=== PATIENT | male | born 1940 | race Caucasian/White ===

== ENCOUNTER 2023-02-07 20:16 | Emergency (ER) | payer MEDICARE ==
[~2023-02-07] VITALS: Ht 177.8 cm; Wt 74.8 kg
[2023-02-07] MEDS ORDERED: fentaNYL INJ 100 MCG/2 ML AMP IVP STA (20:24)
[2023-02-07 20:30] LABS: BASOPHILS % (AUTO) 0 % (0-10); EOSINOPHILS % (AUTO) 0 % (0-10); HEMATOCRIT 42 % (40-54); HEMOGLOBIN 13.7 g/dL (13.3-17.7); LYMPHOCYTES # (AUTO) 2.2 10^3/uL (1.0-4.0); LYMPHOCYTES % (AUTO) 22 % (12-44); MEAN CORPUSCULAR HEMOGLOBIN 29 pg (25-34); MEAN CORPUSCULAR HGB CONC 32 g/dL (32-36); MEAN CORPUSCULAR VOLUME 89 fL (80-99); MEAN PLATELET VOLUME 10.6 fL (9.0-12.2); MONOCYTES # (AUTO) 2.9 10^3/uL (0.0-1.0); MONOCYTES % (AUTO) 29 % (0-12); NEUTROPHILS # (AUTO) 4.8 10^3/uL (1.8-7.8); NEUTROPHILS % (AUTO) 47 % (42-75); PLATELET COUNT 168 10^3/uL (130-400); WHITE BLOOD COUNT 10.1 10^3/uL (4.3-11.0)
--- NOTE | 2023-02-07 20:33 | ED Fall/Injury ---
General Chief Complaint: Trauma-Non Activation Stated Complaint: RIGHT HIP PAIN Source: patient, EMS History of Present Illness Date Seen by Provider: Feb 07, 2023 Time Seen by Provider: 20:16 Initial Comments 82-year-old male presenting by EMS from home. He was trying to separate dogs from fighting and fell from standing height. He was on his hands and knees and then tried to get up and got knocked down again by the dogs. He complains of pain to the right groin and feels that his hip is dislocated. He does not want to straighten his leg out. He has intact neurovascular and tendons. He denies hitting his head or losing consciousness. He denies any other injuries or areas of pain. If he lays still on his left side the right hip pain is 3 out of 10. With movement of the leg he states that shoots up to a 12 or 15. He has several superficial skin tears to his right arm from the fall. Occurred: this evening Injuries/Pain Location: pelvis, lower extremity (Right hip) Context: lost balance (Knocked over by a dog) Loss of Consciousness: no loss of consciousness Modifying Factors: Worse With Movement Associated Symptoms (Fall): No Abdominal Pain, No Chest Pain, No Confusion, No Dizziness, No Headache, No Lightheadedness, No Muscle Spasms, No Nausea/Vomiting, No Neck Pain, No Ringing in Ears, No Seizures, No Shortness of Air, No Slurred Speech, No Vision Changes Allergies and Home Medications Allergies Coded Allergies: No Known Drug Allergies (Unverified , 02/07/23) Patient Home Medication List Home Medication List Reviewed: Yes Review of Systems Review of Systems Constitutional: No chills, No fever Eyes: No Symptoms Reported Ears, Nose, Mouth, Throat: no symptoms reported Respiratory: no symptoms reported Cardiovascular: no symptoms reported Gastrointestinal: no symptoms reported Genitourinary: no symptoms reported Musculoskeletal: see HPI Skin: see HPI Psychiatric/Neurological: Denies Headache Past [id number] Hx Past Medical History Surgery/Hospitalization HX: Hypertension Physical Exam Vital Signs Vital Signs - First Documented 02/07/23 20:56 O2 Flow Rate 2.00 Capillary Refill : Height, Weight, BMI Height: '" Weight: lbs. oz. kg; BMI Method: General Appearance: WD/WN, severe distress (when right leg is moved he cries out in pain, otherwise he is in no distress) HEENT: PERRL/EOMI, pharynx normal Neck: non-tender, full range of motion, supple, normal inspection Cardiovascular: normal peripheral pulses, regular rate, rhythm Respiratory: chest non-tender, lungs clear, normal breath sounds, no respiratory distress, no accessory muscle use Gastrointestinal: normal bowel sounds, non tender, soft, no pulsatile mass Back: no CVA tenderness, no vertebral tenderness Extremities: no pedal edema, no calf tenderness, normal capillary refill, pelvis stable, other (pain to right groin and worse with movement of the right leg/hip) Neurologic/Psychiatric: alert, oriented x 3 Skin: normal color, warm/dry, other (multiple superficial skin tears to right arm) Franklin Coma Score Best Eye Response: (4) Open Spontaneously Best Verbal Response: (5) Oriented Best Motor Response: (6) Obeys Commands Franklin Total: 15 Progress/Results/Core Measures Results/Orders Lab Results Laboratory Tests Test 02/07/23 20:25 02/07/23 21:23 Range/Units White Blood Count 10.1 4.3-11.0 10^3/uL Red Blood Count 4.75 4.30-5.52 10^6/uL Hemoglobin 13.7 13.3-17.7 g/dL Hematocrit 42 40-54 % Mean Corpuscular Volume 89 80-99 fL Mean Corpuscular Hemoglobin 29 25-34 pg Mean Corpuscular Hemoglobin Concent 32 32-36 g/dL Red Cell Distribution Width 13.8 10.0-14.5 % Platelet Count 168 130-400 10^3/uL Mean Platelet Volume 10.6 9.0-12.2 fL Immature Granulocyte % (Auto) 2 % Neutrophils (%) (Auto) 47 42-75 % Lymphocytes (%) (Auto) 22 12-44 % Monocytes (%) (Auto) 29 H 0-12 % Eosinophils (%) (Auto) 0 0-10 % Basophils (%) (Auto) 0 0-10 % Neutrophils # (Auto) 4.8 1.8-7.8 10^3/uL Lymphocytes # (Auto) 2.2 1.0-4.0 10^3/uL Monocytes # (Auto) 2.9 H 0.0-1.0 10^3/uL Eosinophils # (Auto) 0.0 0.0-0.3 10^3/uL Basophils # (Auto) 0.0 0.0-0.1 10^3/uL Immature Granulocyte # (Auto) 0.2 H 0.0-0.1 10^3/uL Neutrophils % (Manual) 46 % Lymphocytes % (Manual) 19 % Monocytes % (Manual) 34 % Eosinophils % (Manual) 1 % Prothrombin Time 13.8 12.2-14.7 SEC INR Comment 1.0 0.8-1.4 Activated Partial Thromboplast Time 22 L 24-35 SEC Sodium Level 140 135-145 MMOL/L Potassium Level 3.8 3.6-5.0 MMOL/L Chloride Level 104 98-107 MMOL/L Carbon Dioxide Level 22 21-32 MMOL/L Anion Gap 14 5-14 MMOL/L Blood Urea Nitrogen 17 7-18 MG/DL Creatinine 1.43 H 0.60-1.30 MG/DL Estimat Glomerular Filtration Rate 48 BUN/Creatinine Ratio 12 Glucose Level 167 H 70-105 MG/DL Calcium Level 9.6 8.5-10.1 MG/DL Corrected Calcium 9.4 8.5-10.1 MG/DL Total Bilirubin 0.3 0.1-1.0 MG/DL Aspartate Amino Transf (AST/SGOT) 16 5-34 U/L Alanine Aminotransferase (ALT/SGPT) 20 0-55 U/L Alkaline Phosphatase 103 40-136 U/L Total Protein 6.8 6.4-8.2 GM/DL Albumin 4.3 3.2-4.5 GM/DL Urine Color YELLOW Urine Clarity CLEAR Urine pH 6.0 5-9 Urine Specific [place] <=1.005 1.016-1.022 Urine Protein NEGATIVE NEGATIVE Urine Glucose (UA) NEGATIVE NEGATIVE Urine Ketones NEGATIVE NEGATIVE Urine Nitrite NEGATIVE NEGATIVE Urine Bilirubin NEGATIVE NEGATIVE Urine Urobilinogen 0.2 < = 1.0 MG/DL Urine Leukocyte Esterase NEGATIVE NEGATIVE Urine RBC (Auto) TRACE-I H NEGATIVE Urine RBC 0-2 /HPF Urine WBC 0-2 /HPF Urine Crystals NONE /LPF Urine Bacteria NEGATIVE /HPF Urine Casts NONE /LPF Urine Mucus NEGATIVE /LPF Urine Culture Indicated NO My Orders Orders - AJIT POLO MD Cbc With Automated Diff (02/07/23 20:24) Comprehensive Metabolic Panel (02/07/23 20:24) Protime With Inr (02/07/23 20:24) Partial Thromboplastin Time (02/07/23 20:24) Ed Iv/Invasive Line Start (02/07/23 20:24) Fentanyl Inj (Sublimaze Injection) (02/07/23 20:24) O2 (02/07/23 20:26) Ct Pelvis Wo (02/07/23 20:26) Manual Differential (02/07/23 20:25) Giron Cath (02/07/23 21:12) Ua Culture If Indicated (02/07/23 21:13) Monitor-Rhythm Ecg Trace Only (02/07/23 22:06) Vital Signs/I&O 02/07/23 02/07/23 02/07/23 02/07/23 20:16 20:16 20:56 22:48 Temp 36.5 36.5 Pulse 74 74 90 Resp 18 18 20 B/P (MAP) 141/67 (91) 141/67 (91) 134/59 Pulse Ox 90 90 94 98 O2 Delivery Room Air Room Air Nasal Cannula Room Air O2 Flow Rate 2.00 2.00 02/08/23 00:00 Output Total 1500 ml Balance -1500 ml Progress Progress Note #1: Progress Note Potential diagnosis of pelvis fracture, right hip fracture, acetabular fracture, pubic ramus fracture, hip dislocation. Obtain basic labs of complete blood count, comprehensive metabolic profile, coagulation factors. CT scan of the pelvis without contrast to evaluate for fractures and try to limit movement as much as possible. He had been given fentanyl 50 mcg and Zofran 4 mg by EMS. We will administer fentanyl 50 mcg to try and help with pain prior to CT. Progress Note #2: Time: 20:48 Progress Note On my personal interpretation and review of his CT scan of the pelvis without IV contrast he has an intertrochanteric comminuted fracture of the right hip that is mildly displaced. As there is no orthopedic coverage at [facility] will check with the patient to see if he has any preference of where I start calling to find out where orthopedics is available 2058 patient requested to go to [facility] as he has had previous admissions there for other care. I called and spoke with DAVID Wagner the transfer nurse at [facility] and gave her basic information. She will contact orthopedics and have them call me to discuss the patient and see if they were able to take him. If he is able to be managed at [facility] then I will speak with the Hospitalist about transfer. 2108 I reviewed the radiologist report on the CT scan of the pelvis without IV contrast. They also saw the intertrochanteric fracture with minimal displacement of the right hip. In addition the saw a inguinal hernia with a portion of the sigmoid colon within it but no evidence of obstruction or incarceration. He also has a distended urinary bladder. 2117 I spoke with midlevel Jess from Orthopedics with [facility]. She thought that they could accept the patient for orthopedic care and will review the images and check with her attending. Will have the hospitalist call to discuss patient about transfer to medical service with Orthopedics consult. 2214 D/w Dr. Jory Gonzalez Hospitalist at [facility]. I briefly reviewed the patient's presentation and his complaint of right hip pain. I reviewed with her the blood work on the patient and that the CT scan had shown intertrochanteric comminuted minimally displaced right hip fracture. He has had 2 doses of fentanyl so far 50 mcg each and a Giron was placed to drain his bladder so he did not have to move as much with having the hip pain from the fracture. He reports that his pain was doing better after the medication and as long as were not moving his right leg. His oxygen saturation did drop down to 88 to 89% after the second dose of fentanyl so he was placed on 2 L of supplemental oxygen which is kept his oxygen saturation in the mid 90s. She accepted on behalf of Dr. Jory Zamudio for the transfer and will let the nursing curtain supervisor know so that they can give us her room assignment and number to call report. Diagnostic Imaging Diagonstic Imaging: CT Plain Films/CT/US/NM/MRI: pelvis Comments NAME: JJ JIMENEZ [facility] REC#: [id number] PT STATUS: REG ER : 1938 PHYSICIAN: AJIT POLO MD ADMIT DATE: 02/07/23/ER FS Draft Date of Exam:02/07/23 CT PELVIS WO INDICATION: Right hip pain post fall. TECHNIQUE: Multiple contiguous axial images were obtained through the pelvis without the use of intravenous contrast. Sagittal and coronal reformations were performed. Auto Exposure Controls were utilized during the CT exam to meet ALARA standards for radiation dose reduction. There is no prior study for comparison There is a comminuted intertrochanteric fracture of the right proximal femur, with multiple components, extending to both the lesser and greater trochanters. There is no other fracture visualized. SI joints show mild degenerative change. There are degenerative changes in the lower lumbar facets. Soft tissue windows demonstrate no significant sized hematoma. There is marked distention of the urinary bladder noted. There is a left inguinal hernia containing loops of sigmoid colon which do not appear obstructed. IMPRESSION: Acute comminuted fracture of the right proximal femur in the intertrochanteric region as above. No significant hematoma. Incidental findings of marked distention of the urinary bladder as well as a left inguinal hernia, containing portion of the sigmoid colon which did not appear obstructed. Dictated on workstation # [id number] Dict: 02/07/232056 Trans: 02/07/232103 [facility] [id number] Interpreted by: JJ WILDER MD Electronically signed by: Reviewed: Reviewed by Me (I reviewed the radiologist report at 2107 and the agreed that he had a intertrochanteric fracture with minimal displacement that was comminuted to the right hip.) Departure Impression Primary Impression: Closed intertrochanteric fracture of right hip Qualified Codes: S72.141A - Displaced intertrochanteric fracture of right femur, initial encounter for closed fracture Additional Impressions: Fall from standing Qualified Codes: W19.XXXA - Unspecified fall, initial encounter Multiple skin tears Disposition: XF [facility] Condition: Stable Transfer Transfer Reason: Exceeds level of care (No orthopedic coverage) Time Spoke to Accepting Phy: 22:15 Transfer Progress Notes 2215 D/w Dr. Jory Gonzalez Hospitalist at [facility]. I briefly reviewed the patient's presentation and his complaint of right hip pain. I reviewed with her the blood work on the patient and that the CT scan had shown intertrochanteric comminuted minimally displaced right hip fracture. He has had 2 doses of fentanyl so far 50 mcg each and a Giron was placed to drain his bladder so he did not have to move as much with having the hip pain from the fracture. He reports that his pain was doing better after the medication and as long as were not moving his right leg. His oxygen saturation did drop down to 88 to 89% after the second dose of fentanyl so he was placed on 2 L of supplemental oxygen which is kept his oxygen saturation in the mid 90s. She accepted on behalf of Dr. Jory Zamudio for the transfer and will let the nursing curtain supervisor know so that they can give us her room assignment and number to call report. Transfer Facility: [facility] Method of Transfer: EMS AJIT POLO MD Feb 07, 2023 20:33
[2023-02-07 20:42] LABS: PROTHROMBIN TIME PATIENT 13.8 SEC (12.2-14.7)
[2023-02-07 20:49] LABS: POTASSIUM 3.8 MMOL/L (3.6-5.0)
[2023-02-07 20:50] LABS: ALBUMIN 4.3 GM/DL (3.2-4.5); BILIRUBIN,TOTAL 0.3 MG/DL (0.1-1.0); CALCIUM 9.6 MG/DL (8.5-10.1); CREATININE SERUM 1.43 MG/DL (0.60-1.30); TOTAL PROTEIN 6.8 GM/DL (6.4-8.2)
[2023-02-07 20:53] LABS: EOSINOPHILS % (MANUAL) 1 %; LYMPHOCYTES % (MANUAL) 19 %; MONOCYTES % (MANUAL) 34 %; NEUTROPHILS % (MANUAL) 46 %
--- NOTE | 2023-02-07 21:05 | Diagnostic Imaging Report ---
INDICATION: Right hip pain post fall. TECHNIQUE: Multiple contiguous axial images were obtained through the pelvis without the use of intravenous contrast. Sagittal and coronal reformations were performed. Auto Exposure Controls were utilized during the CT exam to meet ALARA standards for radiation dose reduction. There is no prior study for comparison There is a comminuted intertrochanteric fracture of the right proximal femur, with multiple components, extending to both the lesser and greater trochanters. There is no other fracture visualized. SI joints show mild degenerative change. There are degenerative changes in the lower lumbar facets. Soft tissue windows demonstrate no significant sized hematoma. There is marked distention of the urinary bladder noted. There is a left inguinal hernia containing loops of sigmoid colon which do not appear obstructed. IMPRESSION: Acute comminuted fracture of the right proximal femur in the intertrochanteric region as above. No significant hematoma. Incidental findings of marked distention of the urinary bladder as well as a left inguinal hernia, containing portion of the sigmoid colon which did not appear obstructed. Dictated by: Dictated on workstation # [id number]
[2023-02-07 22:10] LABS: BILIRUBIN,URINE NEGATIVE (NEGATIVE); CLARITY,URINE CLEAR; COLOR,URINE YELLOW; GLUCOSE, URINE (UA) NEGATIVE (NEGATIVE); KETONES,URINE NEGATIVE (NEGATIVE); LEUKOCYTE ESTERASE ,URINE NEGATIVE (NEGATIVE); NITRITE,URINE NEGATIVE (NEGATIVE); PROTEIN,URINE NEGATIVE (NEGATIVE)
[2023-02-07 22:13] LABS: BACTERIA,URINE NEGATIVE /HPF; RBC,URINE 0-2 /HPF; WBC,URINE 0-2 /HPF
[2023-02-07 22:48] VITALS: BP 134/59
== END 2023-02-07 22:48 | disposition short-term general hospital (02) ==
LOC: EDUNIT# 20:16 → ER FS 20:19
DX: S72.141A Displaced intertrochanteric fracture of right femur, initial encounter for closed fracture (principal); S41.111A Laceration without foreign body of right upper arm, initial encounter; W18.30XA Fall on same level, unspecified, initial encounter
CPT/HCPCS: 36415; 51702; 72192; 80053; 81000; 85007; 85027; 85610; 85730; 93041

== ENCOUNTER 2023-04-17 05:29 | Outpatient (CLI) | payer MEDICARE ==
[~2023-04-17] VITALS: Ht 172.7 cm; Wt 68.2 kg
[2023-04-17] MEDS ORDERED: ATOR40TA70 PO (10:02)
[2023-04-17] MEDS ORDERED: LOSA50TA63 PO (10:02)
[2023-04-17] MEDS ORDERED: AMLO-251 PO (10:02)
[2023-04-17] MEDS ORDERED: ALLO300T2 PO (10:02)
[2023-04-17] MEDS ORDERED: LEVO25CA4 PO (10:02)
== END 2023-04-17 14:49 | disposition home or self-care (01) ==
LOC: PREOP 05:29
PROVIDERS: ATTEND Otolaryngology Otolaryngology/Facial Plastic Surgery
DX: Z01.818 Encounter for other preprocedural examination (principal)